=== PATIENT | male | born 1960 | race Caucasian/White ===

== ENCOUNTER 2016-11-09 10:14 | Outpatient (CLI) ==
[2016-03-07 07:17] VITALS: BMI 34.7
[2016-11-09 10:55] LABS: BASOPHILS % (AUTO) 0.4 % (0.0-3.0); EOSINOPHILS # (AUTO) 0.2 K/ul (0.0-0.7); EOSINOPHILS % (AUTO) 2.1 % (0.0-7.0); HEMATOCRIT 49.1 % (42.0-52.0); HEMOGLOBIN 16.4 g/dl (14.0-18.0); IMMATURE GRANULOCYTE % (AUTO) 0.2 % (0.0-5.0); LYMPHOCYTES # (AUTO) 1.9 K/uL (0.60-3.4); LYMPHOCYTES % (AUTO) 22.7 (10.0-50.0); MEAN CORPUSCULAR HGB CONC 33.4 (31.8-35.4); MEAN CORPUSCULAR VOLUME 86.9 fl (80.0-94.0); MONOCYTES # (AUTO) 0.5 K/uL (0.4-2.0); MONOCYTES % (AUTO) 6.4 (0-10); NEUTROPHILS # (AUTO) 5.6 K/ul (2.0-6.9); NEUTROPHILS % (AUTO) 68.2; PLATELET COUNT 178 10^3/uL (140-440); RED BLOOD COUNT 5.65 10^6/ul (4.70-6.10); WHITE BLOOD COUNT 8.22 K/ul (4.2-10.2)
--- NOTE | 2016-11-09 10:57 | US ---
EXAM: Ultrasound abdomen limited. HISTORY: Chronic hepatitis C. COMPARISON: None available. TECHNIQUE: Abdominal, real time with image documentation: limited (eg, single organ, quadrant, fol low-up) FINDINGS: The liver demonstrates a subtle nodular surface contour although there is homogeneous ech otexture without intrahepatic biliary dilatation. Portal venous flow is normal in direction. The g allbladder is without shadowing stones, wall thickening or pericholecystic fluid. Common duct measu res approximately 0.4 cm. Visualized portions of the pancreas are unremarkable. IMPRESSION: Subtle hepatic nodular surface contour could represent cirrhosis. No discrete hepatic lesion identi fied.
[2016-11-09 11:13] LABS: ALBUMIN 4.1 g/dL (3.4-5.0); ALBUMIN/GLOBULIN RATIO 1.08; ANION GAP 12.5; BILIRUBIN,TOTAL 0.49 mg/dL (0.00-1.20); BUN/CREATININE RATIO 15.47; CALCIUM 9.6 mg/dL (8.2-10.2); CREATININE 0.84 mg/dL (0.60-1.10); POTASSIUM 4.5 mmol/L (3.5-5.1); TOTAL PROTEIN 7.9 g/dL (6.4-8.2)
[2016-11-10 07:44] LABS: HEPATITIS A ANTIBODY TOTAL Negative (Negative)
[2016-11-10 08:06] LABS: HEPATITIS B SURFACE ANTIBODY Non Reactive (.)
[2016-11-13 13:11] LABS: HEPATITIS C GENOTYPE 1a (.)
== END 2016-11-09 10:15 | disposition home or self-care (01) ==
LOC: RAD 10:14
PROVIDERS: ATTEND Nurse Practitioner Family
DX: B18.2 Chronic viral hepatitis C (principal)
CPT/HCPCS: 36415; 80053; 85025; 86705; 86706; 86708; 87340; 87522

== ENCOUNTER 2016-12-05 08:58 | Day surgery (SDC) ==
[2016-03-07 07:17] VITALS: BMI 34.7
[2016-12-05] MEDS ORDERED: LIDOCAINE 1% 20 ML MDV ID ONE (09:43)
[2016-12-05] MEDS ORDERED: LIDOCAINE 1% 20 ML MDV ONE (09:43)
[2016-12-05] MEDS ORDERED: ALBUTEROL 0.083% NEB NEB STA (10:01)
[2016-12-05] MEDS ORDERED: DIPRIVAN 20 ML VIAL IVP ONE (10:35)
[2016-12-05] MEDS ORDERED: VERSED ONE (10:35)
[2016-12-05 12:21] VITALS: BP 142/75; TEMP 98
--- NOTE | 2016-12-06 09:46 | OP ---
INDICATIONS FOR PROCEDURE: 56-year-old gentleman presents for screening colonoscopy exam. MEDICATIONS: SEE ANESTHESIA NOTES. PROCEDURE: COLONOSCOPY, SNARE POLYPECTOMY. REPORT: The risks, benefits, alternatives and limitations were discussed in detail with the patient. Informed consent was obtained. After adequate sedation was achieved, a digital rectal exam revealed good tone, no masses. The colonoscope was introduced into the rectum and advanced under direct visual guidance to the cecum. The cecum was identified by the appendiceal orifice and IC valve. In the cecum there was a 7 or 8 mm sessile polyp, I removed this by snare technique. I then slowly withdrew the scope in a circumferential manner examining the mucosa quite carefully. I looked on the proximal and distal side of folds and flexures as best as possible. I was able to retroflex the scope in the right colon and left colon to increase visualization. In the proximal mid sigmoid area there was a 5 mm sessile polyp that I removed by snare technique. There were several small mouth diverticula scattered throughout the sigmoid. In the proximal rectum, behind the first fold of the rectum, what I believe was the 6 o'clock position based on the scope visualization was a polyp that was about 8 mm in size. It was a raised round polyp that appeared to be a little bit firm and may have been a submucosal lesion. It was semi pedunculated. I was able to place a snare around this and remove it at the base. There was no residual tissue noted at the polypectomy site. The polyp was retrieved and collected. No other abnormalities were noted including on retroflex view of the anal canal. The prep was good. The withdrawal time was 11 minutes and 55 seconds. The patient tolerated the procedure well with stable vital signs and pulse oximetry throughout. IMPRESSION: 1. THREE (3) POLYPOID LESIONS REMOVED ABOVE. 2. DIVERTICULOSIS. RECOMMENDATIONS: 1. High fiber diet. 2. Office visit as needed and as previously scheduled for followup of his hepatitis C (of which he did tell me that he was notified last night he got approved for the medicine). 3. If pathology is all unremarkable then I suggest a repeat colonoscopy examination again in 3 years. CC: [facility]
== END 2016-12-05 11:50 | disposition home or self-care (01) ==
LOC: SURG 08:58
PROVIDERS: ATTEND Internal Medicine Gastroenterology
DX: Z12.11 Encounter for screening for malignant neoplasm of colon (principal); D12.0 Benign neoplasm of cecum; D12.5 Benign neoplasm of sigmoid colon; D12.8 Benign neoplasm of rectum; K57.30 Diverticulosis of large intestine without perforation or abscess without bleeding; E11.9 Type 2 diabetes mellitus without complications
CPT/HCPCS: 82962; 94640

== ENCOUNTER 2016-12-14 06:38 | Outpatient (CLI) ==
[2016-03-07 07:17] VITALS: BMI 34.7
--- NOTE | 2016-12-14 11:47 | STRESSECHO ---
Date of Test: 12/14/16 Reason for Exam: CHEST PAIN Ordering Physician: [facility]--JANETH Current Medications: ZANAFLEX, NORCO, VASOTEC, NEURONTIN, SYMBICORT, OMEPRAZOLE Physical Findings: S1, S2, NO S3 Resting EKG: SINUS RHYTHM/NO ACUTE CHANGES Target Heart Rate: 137/162 STAGE MPH/GRADE HEART RATE BPM BLOOD PRESSURE mmhg RHYTHM S-T SEGMENT +/- UP DOWN SYMPTOMS,COMMENTS At Rest 68 128/70 SR X NONE 1 1.7/10% 100 140/82 SR X NONE 2 2.5/12% 120 140/80 SR X NONE 3 3.4/14% 4 4.2/16% 5 5.0/18% Immediately after 137 SR X SHORT OF BREATH Durations of Exercise: 6:36 Maximum Heart Rate Reached: 137 Reason for Termination: SHORT OF BREATH 3 MIN POST EXERCISE: HR 90 BPM, BP 148/72 MMHG, SINUS RHYTHM, S-T SEGMENT +/- , SHORT OF BREATH INTERPRETATION: 93% OXYGEN SATURATION WITH EXERCISE ON ROOM AIR METS 8.3 1. NO EVIDENCE OF ISCHEMIA BY ST-T WAVE 2. NO CHEST PAIN OR CHEST DISCOMFORT 3. BLOOD PRESSURE RESPONSE: NORMAL 4. NO ARRHYTHMIAS NORMAL LEFT VENTRICULAR CONTRACTILITY--RESTING AND POST EXERCISE MTDD
--- NOTE | 2016-12-14 12:01 | ECHOSTRESS ---
Date of Exam: 12/14/16 Ordering Physician: [facility]--JANETH Reason for Echo: CHEST PAIN, STRESS TEST--NO ISCHEMIA M-Mode Normal Adult Results LV Dimensions Normal Adult Results AoV Opening excursions >1.6 LVEDD-base- 3.5-5.8 Ao root dimensions 2.0-3.7 LVESD-base- 3.1-4.6 L. Atrium dimensions 1.9-3.8 Post. Wall thickness 0.8-1.1 IV septum (thickness) 0.7-1.2 Post. Wall excursion 0.72-1.3 Septal motion Systolic motion R. Ventricular cavity 1.5-2.0 LVEF 60% Paradoxical septal wall motion 2-D: NORMAL LEFT VENTRICULAR CONTRACTILITY--RESTING AND POST EXERCISE M-MODE: MV: AV: TV: PV: CHAMBER SIZE: WALL MOTION: NORMAL LEFT VENTRICULAR CONTRACTILITY--RESTING AND POST EXERCISE PERICARDIUM: INTERPRETATION: 1. NORMAL LEFT VENTRICULAR CONTRACTILITY--RESTING AND POST EXERCISE MTDD
== END 2016-12-14 06:39 | disposition home or self-care (01) ==
LOC: CAR 06:38
PROVIDERS: ATTEND Physician Assistant Medical
DX: R07.9 Chest pain, unspecified (principal)

== ENCOUNTER 2017-05-29 08:20 | Outpatient (CLI) ==
[2016-03-07 07:17] VITALS: BMI 34.7
== END 2017-05-29 08:21 | disposition home or self-care (01) ==
LOC: RAD 08:20
PROVIDERS: ATTEND Internal Medicine Gastroenterology
DX: B18.2 Chronic viral hepatitis C (principal)
CPT/HCPCS: 36415; 87522

== ENCOUNTER 2017-06-01 08:36 | Outpatient (CLI) | payer OTHER ==
[2016-03-07 07:17] VITALS: BMI 34.7
--- NOTE | 2017-06-01 09:20 | US ---
EXAM: Limited abdominal ultrasound. History: Cirrhosis, follow-up Comparison: Abdominal ultrasound 11/09/2016 Technique: Multiple sonographic images through the abdomen were obtained. Color duplex Doppler was used to interrogate vascular flow. Findings: The liver is not enlarged according to the sonographic measurement given. No focal liver lesions identified sonographically. The liver echotexture is slightly coarsened and not significan tly changed. The visualized pancreas demonstrates no gross abnormality. No abdominal ascites. The re is antegrade flow within the main portal vein. Limited visualization of the right kidney demonst rates no evidence for hydronephrosis. No shadowing gallstones. Gallbladder wall is not thickened. Common bile duct measures 0.3 cm in caliber. Impression: Mild coarsening of the liver echotexture, similar to the prior study. No focal liver l esions identified.
== END 2017-06-01 08:37 | disposition home or self-care (01) ==
LOC: RAD 08:36
PROVIDERS: ATTEND Internal Medicine Gastroenterology
DX: B18.2 Chronic viral hepatitis C (principal)

== ENCOUNTER 2021-07-10 12:05 | Inpatient (IN) ==
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
[2021-07-10] MEDS ORDERED: VENTOLIN HFA (PER PUFF-WITH SPACER) IH STA (14:23)
[2021-07-10 14:35] LABS: BASOPHILS # (AUTO) 0.1 K/uL (0-0.2); BASOPHILS % (AUTO) 0.7 % (0.0-3.0); EOSINOPHILS # (AUTO) 0.1 K/ul (0.0-0.7); EOSINOPHILS % (AUTO) 1.7 % (0.0-7.0); HEMATOCRIT 43.8 % (42.0-52.0); HEMOGLOBIN 13.8 g/dl (14.0-18.0); IMMATURE GRANULOCYTE % (AUTO) 0.3 % (0.0-5.0); LYMPHOCYTES # (AUTO) 1.6 K/uL (0.60-3.4); LYMPHOCYTES % (AUTO) 21.4 (10.0-50.0); MEAN CORPUSCULAR HEMOGLOBIN 28.5 pg (27.0-31.0); MEAN CORPUSCULAR HGB CONC 31.5 (31.8-35.4); MEAN CORPUSCULAR VOLUME 90.5 fl (80.0-94.0); MONOCYTES # (AUTO) 0.7 K/uL (0.4-2.0); MONOCYTES % (AUTO) 8.7 (0-10); NEUTROPHILS % (AUTO) 67.2 % (42.2-75.2); PLATELET COUNT 183 10^3/uL (140-440); RDW COEFFICIENT OF VARIATION 13.2 % (11.6-14.8); RED BLOOD COUNT 4.84 10^6/ul (4.70-6.10); WHITE BLOOD COUNT 7.49 K/ul (4.2-10.2)
[2021-07-10 14:36] LABS: BORDETELLA PARAPERTUSSIS (PCR) NOT DETECTED (NOT DETECT); BORDETELLA PERTUSSIS (PCR) NOT DETECTED (NOT DETECT); CHLAMYDIA PNEUMONIAE (PCR) NOT DETECTED (NOT DETECT); CORONAVIRUS 229E (PCR) NOT DETECTED (NOT DETECT); CORONAVIRUS HKU1 (PCR) NOT DETECTED (NOT DETECT); CORONAVIRUS NL63 (PCR) NOT DETECTED (NOT DETECT); CORONAVIRUS OC43 (PCR) NOT DETECTED (NOT DETECT); HUMAN METAPNEUMOVIRUS (PCR) NOT DETECTED (NOT DETECT); HUMAN RHINOVIRUS/ENTEROV (PCR) NOT DETECTED (NOT DETECT); INFLUENZA B (PCR) NOT DETECTED (NOT DETECT); MYCOPLASMA PNEUMONIAE (PCR) NOT DETECTED (NOT DETECT); PARAINFLUENZA VIRUS 1 (PCR) NOT DETECTED (NOT DETECT); PARAINFLUENZA VIRUS 2 (PCR) NOT DETECTED (NOT DETECT); PARAINFLUENZA VIRUS 3 (PCR) NOT DETECTED (NOT DETECT); PARAINFLUENZA VIRUS 4 (PCR) NOT DETECTED (NOT DETECT); RESPIRATORY SYNCYTIAL V (PCR) NOT DETECTED (NOT DETECT); SARS_COV_2 (PCR) NOT DETECTED (NOT DETECT)
[2021-07-10 14:48] LABS: ALBUMIN 4.02 g/dL (3.5-5.0); ALKALINE PHOSPHATASE 34.7 U/L (56-119); ASPARTATE AMINO TRANSFERASE 24.1 U/L (17-59); BILIRUBIN,TOTAL 0.48 mg/dL (0.2-1.3); BLOOD UREA NITROGEN 9.5 mg/dL (9-20); CALCIUM 9.02 mg/dL (8.4-10.2); CARBON DIOXIDE 29.4 mmol/L (22-30.0); CHLORIDE 103.5 mmol/L (98-107); CREATININE 0.96 mg/dL (0.60-1.10); GLUCOSE 123.2 mg/dL (74-106); POTASSIUM 4.63 mmol/L (3.5-5.1); SODIUM 139.6 mmol/L (134.5-145); TOTAL PROTEIN 6.79 g/dL (6.3-8.2)
--- NOTE | 2021-07-10 14:49 | DI ---
EXAM: Chest one view, frontal view only. HISTORY: Dyspnea. COMPARISON: None. FINDINGS: Cardiac silhouette enlarged. There is no vascular congestion. There is blunting of the r ight costophrenic angle with band-like opacity along the right diaphragm. Lungs otherwise clear. No pneumothorax. Calcifications in the aorta and expected location of the carotid arteries. No acute osseous abnormality. IMPRESSION: Right pleural effusion with right basilar atelectasis or pneumonia.
[2021-07-10 15:00] LABS: TROPONIN I 0.024 ng/ml (0.0000-0.120)
[2021-07-10 15:25] LABS: ADENOVIRUS (PCR) NOT DETECTED (NOT DETECT)
[2021-07-10] MEDS: LOVENOX SUBCUT SCH (17:52)
[2021-07-10 18:24] LABS: ABG O2 HGB 93.8 % (95-100); ABG PH 7.44 (7.35-7.45); BEecf 4.3 (-2.0-3.0); COHb 2.9 (0.5-1.5); HCO3 28.5 (21-28); MetHb 0.7 (0-1.5); TCO2 29.8 (19-24); sO2 95.2 % (94-98)
[2021-07-10] MEDS: LASIX IVP SCH (18:40)
[2021-07-11] MEDS: LASIX IVP SCH (05:41)
[2021-07-11] MEDS ORDERED: LASIX IVP SCH (06:30)
[2021-07-11 07:23] LABS: BASOPHILS # (AUTO) 0.1 K/uL (0-0.2); BASOPHILS % (AUTO) 0.7 % (0.0-3.0); EOSINOPHILS # (AUTO) 0.1 K/ul (0.0-0.7); EOSINOPHILS % (AUTO) 1.8 % (0.0-7.0); HEMATOCRIT 42.5 % (42.0-52.0); HEMOGLOBIN 13.8 g/dl (14.0-18.0); IMMATURE GRANULOCYTE % (AUTO) 0.1 % (0.0-5.0); LYMPHOCYTES # (AUTO) 2.2 K/uL (0.60-3.4); LYMPHOCYTES % (AUTO) 28.6 (10.0-50.0); MEAN CORPUSCULAR HEMOGLOBIN 28.9 pg (27.0-31.0); MEAN CORPUSCULAR HGB CONC 32.5 (31.8-35.4); MEAN CORPUSCULAR VOLUME 88.9 fl (80.0-94.0); MONOCYTES # (AUTO) 0.7 K/uL (0.4-2.0); MONOCYTES % (AUTO) 9.3 (0-10); NEUTROPHILS # (AUTO) 4.5 K/ul (2.0-6.9); NEUTROPHILS % (AUTO) 59.5 % (42.2-75.2); PLATELET COUNT 203 10^3/uL (140-440); RDW COEFFICIENT OF VARIATION 13.1 % (11.6-14.8); RED BLOOD COUNT 4.78 10^6/ul (4.70-6.10)
[2021-07-11 07:35] LABS: ALBUMIN 4.09 g/dL (3.5-5.0); ALKALINE PHOSPHATASE 33.7 U/L (56-119); ASPARTATE AMINO TRANSFERASE 24.5 U/L (17-59); BILIRUBIN,TOTAL 0.57 mg/dL (0.2-1.3); CALCIUM 9.26 mg/dL (8.4-10.2); CARBON DIOXIDE 32.3 mmol/L (22-30.0); CHLORIDE 101.6 mmol/L (98-107); CHOLESTEROL 123.4 mg/dL (0-200); CREATININE 1.02 mg/dL (0.60-1.10); GLUCOSE 126.8 mg/dL (74-106); HDL CHOLESTEROL 32.3 mg/dL (35-60); POTASSIUM 4.4 mmol/L (3.5-5.1); SODIUM 140.6 mmol/L (134.5-145); TOTAL PROTEIN 6.93 g/dL (6.3-8.2); TRIGLYCERIDES 86.3 mg/dL (0-150)
[2021-07-11 07:36] VITALS: BMI 31.8
[2021-07-11 07:46] LABS: TROPONIN I 0.032 ng/ml (0.0000-0.120)
[2021-07-11 08:06] LABS: THYROID STIMULATING HORMONE 2.18 uIU/L (0.465-4.68)
[2021-07-11] MEDS ORDERED: LASIX IVP STA (08:43)
--- NOTE | 2021-07-11 08:57 | PCM.PROG ---
Date Seen by Provider: 07/11/21 Time Seen by Provider: 08:05 Subjective: Pt admitted for CHF and SOB. Still complains of SOB particularly when laying down or when he falls asleep. Awating Consult with Dr. Bautista Objective: Vitals: T=97.6 F, P=96, R=18, VJ=774/87, SPO2=96 HEENT: [] Neck: [] Lungs: [No obvious resp distress with minimal bibasilar rales] CVS: [] Abdomen: [] Extremities: [] Neurological: [] Skin: [] Lab/Tests/Diagnostic Imaging: [] Plan: Labs Show trop of 0.32 up slightly from previous but still negative. BNP is actually higher than before, up to 9180 from 7420. CBC and Chems are otherwise negative. Will await Dr. Bautista consult and reeval after that.
--- NOTE | 2021-07-11 09:17 | PCM.PROG ---
Dr. Bautista has seen and evaluated the patient. He wants the patient to move from Obs to IP which Case Management is working on. Have increased Lasix, added Rocephin, added a CT of the chest and will complete the Echo later. Pt will be here at least one more day.
--- NOTE | 2021-07-11 09:23 | PCM.PROG ---
Attending Provider: ATTENDING PROVIDER: Dr. ZAIDA PABLO This patient is seen with Trena Trevino, Nurse Practitioner. DATE OF SERVICE: 07/11/21 SUBJECTIVE: This 61 year old /WHITE M was hospitalized 07/10/21. The patient is resting comfortably. The patient arrived to the ER complaining of shortness of breath, orthopnea and severe leg edema. He states this has been happening the past severe weeks. He hasn't been able to sleep. He is noncompliant with medical followup. He is not taking any prescription medication. Not consistently seen by health care provider. He is a one pack per day smoker. He has a positive family history of CAD. Denies any chest pain. REVIEW OF SYSTEMS: CONSTITUTIONAL: No night sweats. No fatigue, malaise, lethargy. No fever or chills. HEENT: Eyes: No visual changes. No eye pain. No eye discharge. ENT: No runny nose. No epistaxis. No sinus pain. No odynophagia. No congestion. RESPIRATORY: Cough, no congestion. No hemoptysis. Shortness of breath. CARDIOVASCULAR: No angina symptoms. No CHF symptoms. No atypical chest pain for CAD. No palpitations. No orthopnea.. GASTROINTESTINAL: No abdominal pain. No nausea or vomiting. No diarrhea or constipation. No hematemesis. No hematochezia. GENITOURINARY: No urgency. No frequency. No dysuria. No hematuria. No obstructive symptoms. No discharge. No pain. No significant abnormal bleeding. MUSCULOSKELETAL: No musculoskeletal pain; no joint swelling. NEUROLOGICAL: Awake, alert, oriented to time, place and person. No headache. No neck pain. No syncope. No seizures. No dizziness. PSYCHIATRIC: Not anxious. No depression. No suicidal thoughts. No homicidal thoughts. SKIN: No rash. No lesions. No wounds. Leg edema. ENDOCRINE: No unexplained weight loss. No weight gain. HEMATOLOGIC/LYMPHATIC: No anemia. No purpura. No petechiae. No prolonged or excessive bleeding. No palpable lymph nodes. PHYSICAL EXAMINATION: GENERAL: The patient is awake, alert and oriented, lying in bed in no distress. VITAL SIGNS: Temperature 97.6 F, Pulse 96, Respiratory Rate 18, BP 124/87, Pulse Ox 96% HEENT: Head normocephalic, atraumatic. Eyes: Extraocular muscles are intact. Pupils are equal, round and reactive to light and accommodation. Ears: No lesions. Nose appeared normal. Throat: No exudate or erythema. NECK: Supple. No JVD, no carotid bruit. No lymphadenopathy or thyromegaly. LUNGS: Diminished breath sounds. Crackles at bases. Clear to auscultation. Percussion note normal. Chest symmetrical. HEART: S1, S2, no S3. No murmurs. No cyanosis or clubbing. No ascites. Pulses: Dorsalis pedis and posterior tibial pulses +1 to +2 both sides. ABDOMEN: Soft. Non-tender. Bowel sounds active. No CVA tenderness. No mass felt. EXTREMITIES: 2+ bilateral leg edema. Full range of motion of all extremities, equal. NEUROLOGIC: No focal deficit. Cranial nerves II through XII are grossly intact. No headache. No double vision. SKIN: Not dry. Intact. Turgor-normal. LYMPHATIC: No palpable lymph nodes/no lymphedema. MUSCULOSKELETAL: Normal joints with no swelling. Muscle tone is normal. LAB REVIEW: 07/11/21 07:13 07/11/21 07:13 07/11/21 07:13: Sodium 140.6, Potassium 4.40, Chloride 101.6, Carbon Dioxide 32.3 H, Anion Gap 11.10, BUN 12.0, Creatinine 1.02, Estimated GFR (MDRD) 74.00, BUN/Creatinine Ratio 11.76, Glucose 126.8 H, Calcium 9.26, Total Bilirubin 0.57, AST 24.5, ALT 19.0, Alkaline Phosphatase 33.7 L, Total Protein 6.93, Albumin 4.09, Globulin 2.84, Albumin/Globulin Ratio 1.44, Triglycerides 86.3, Cholesterol 123.4, LDL Cholesterol, Calc 74, VLDL Cholesterol 17, HDL Cholesterol 32.3 L, Cholesterol/HDL Ratio 3.8 L 07/11/21 07:13: WBC 7.60, RBC 4.78, Hgb 13.8 L, Hct 42.5, MCV 88.9, MCH 28.9, MCHC 32.5, RDW Coeff of Shani 13.1, Plt Count 203, Immature Gran % (Auto) 0.1, Neut % (Auto) 59.5, Lymph % (Auto) 28.6, [place] % (Auto) 9.3, Eos % (Auto) 1.8, Baso % (Auto) 0.7, Neut # (Auto) 4.5, Lymph # (Auto) 2.2, [place] # (Auto) 0.7, Eos # (Auto) 0.1, Baso # (Auto) 0.1, Immature Gran # (Auto) 0.0 07/10/21 23:25: Troponin I 0.029 07/10/21 18:19: Puncture Site Lbrach, Base Excess 4.3 H, O2 Saturation 95.2, ABG pH 7.44, ABG pCO2 42.0, ABG pO2 74.0 L, ABG HCO3 28.5 H, ABG Total CO2 29.8 H, Hemoglobin 0.7, Oxyhemoglobin 93.8 L, Carboxyhemoglobin 2.9 H, Total Hemoglobin 13.0, FiO2 % 21.0 07/10/21 14:30: Sodium 139.6, Potassium 4.63, Chloride 103.5, Carbon Dioxide 29.4, Anion Gap 11.33, BUN 9.5, Creatinine 0.96, Estimated GFR (MDRD) 79.00, BUN/Creatinine Ratio 9.89, Glucose 123.2 H, Calcium 9.02, Total Bilirubin 0.48, AST 24.1, ALT 21.0, Alkaline Phosphatase 34.7 L, Troponin I 0.024, NT-Pro-B Natriuret Pep 7420.000 H, Total Protein 6.79, Albumin 4.02, Globulin 2.77, Albumin/Globulin Ratio 1.45 07/10/21 14:30: WBC 7.49, RBC 4.84, Hgb 13.8 L, Hct 43.8, MCV 90.5, MCH 28.5, MCHC 31.5 L, RDW Coeff of Shani 13.2, Plt Count 183, Immature Gran % (Auto) 0.3, Neut % (Auto) 67.2, Lymph % (Auto) 21.4, [place] % (Auto) 8.7, Eos % (Auto) 1.7, Baso % (Auto) 0.7, Neut # (Auto) 5.0, Lymph # (Auto) 1.6, [place] # (Auto) 0.7, Eos # (Auto) 0.1, Baso # (Auto) 0.1, Immature Gran # (Auto) 0.0 07/10/21 13:45: Adenovirus (PCR) Not detected, B. pertussis DNA (PCR) Not detected, B.parapertussis DNA PCR Not detected, C. pneumoniae DNA (PCR) Not detected, Coronavirus OC43 (PCR) Not detected, Coronavirus HKU1 (PCR) Not detected, Coronavirus 229E (PCR) Not detected, Coronavirus NL63 (PCR) Not detected, Human Metapneumovir PCR Not detected, Influenza Type A (PCR) Not detected, Influenza B (RT-PCR) Not detected, M. pneumoniae (PCR) Not detected, Parainfluenza 1 (PCR) Not detected, Parainfluenza 2 (PCR) Not detected, Parainfluenza 3 (PCR) Not detected, Parainfluenza 4 (PCR) Not detected, RSV (PCR) Not detected, Entero/Rhino (PCR) Not detected, SARS-CoV-2 (PCR) Not detected ASSESSMENT: Please see below. 1. Bilateral leg edema 2. Shortness of breath 3. Smoker 4. Obesity 5. Family history of coronary artery disease 6. elevated BNP/possible CHF PLAN: 1. Rocephin 1 gram IV daily 2. A1c 3. 2D echo 4. 40mg IV Lasix daily 5. Daily weights 6. Monitor input and output 7. CT chest with and without 8. Keep legs elevated. Plan and coordination of the patient's care discussed in the presence of Streetcar Repairer and nurse. SCRIBED BY: LIZ PHILLIP Assistant Store Manager Sales scribed while in presence of service performed by Dr. Bautista/Trena Trevino APRN on 07/11/21 ([id number])
[2021-07-11] MEDS: ROCEPHIN 1 GM/50 ML D5W 1 GM/50 ML BAG IV SCH (10:01)
[2021-07-11] MEDS: LOVENOX SUBCUT SCH (10:01)
--- NOTE | 2021-07-11 11:40 | CT ---
EXAM: CT Chest with and without contrast. HISTORY: Chest port failure. Right pleural effusion. COMPARISON: Radiograph 1 day prior. TECHNIQUE: Multiple axial images of the chest were obtained prior to and following intravenous admin istration of 75 mL Omnipaque 350, low osmolar. Images were reformatted in the sagittal and coronal p lanes. FINDINGS: Multiple mediastinal lymph nodes present which measure 1.5 cm in the pretracheal region on postcontrast axial image 21. Multiple other mediastinal and hilar lymph nodes are present which are prominent although not enlarged by size criteria. Heart mildly enlarged. Atherosclerotic calcifications in the aorta and coronary arteries. No perica rdial effusion. There is a moderate right pleural effusion with dependent consolidation in the right lower lobe. The re is no left pleural effusion. No interlobular septal thickening, consolidation ground-glass. No o vert vascular congestion. Limited images of the upper abdomen demonstrate small hiatal hernia. Trace perihepatic ascites. Degenerative changes in the spine. IMPRESSION: 1. Moderate right pleural effusion with dependent right lower lobe atelectasis. 2. Mediastinal lymphadenopathy with additional multiple mediastinal and hilar lymph nodes. Follow-u p in 3 months recommended. 3. Cardiomegaly and atherosclerosis. 4. Trace perihepatic ascites. 5. Small hiatal hernia. All CT scans are performed using dose optimization techniques as appropriate to the performed exam an d include at least one of the following: Automated exposure control, adjustment of the mA and/or kV according t o size, and the use of iterative reconstruction technique.
[2021-07-11] MEDS: COREG PO SCH ×2 (13:24→17:36)
[2021-07-11] MEDS: DECADRON IVP SCH (13:25)
[2021-07-11] MEDS: ZESTRIL PO SCH (13:25)
[2021-07-11] MEDS: SYMBICORT 160-4.5 MCG INHALER IH SCH ×2 (13:25→20:19)
[2021-07-11] MEDS: LIBRIUM PO SCH ×2 (14:54→20:18)
[2021-07-11] MEDS: THIAMINE IM SCH (14:54)
[2021-07-11] MEDS: GLUCOPHAGE PO SCH (17:36)
[2021-07-12 05:01] LABS: BASOPHILS % (AUTO) 0.2 % (0.0-3.0); HEMATOCRIT 41.3 % (42.0-52.0); HEMOGLOBIN 13.3 g/dl (14.0-18.0); IMMATURE GRANULOCYTE % (AUTO) 0.3 % (0.0-5.0); LYMPHOCYTES # (AUTO) 1.3 K/uL (0.60-3.4); LYMPHOCYTES % (AUTO) 13.2 (10.0-50.0); MEAN CORPUSCULAR HEMOGLOBIN 28.1 pg (27.0-31.0); MEAN CORPUSCULAR HGB CONC 32.2 (31.8-35.4); MEAN CORPUSCULAR VOLUME 87.3 fl (80.0-94.0); MONOCYTES # (AUTO) 0.6 K/uL (0.4-2.0); MONOCYTES % (AUTO) 6.8 (0-10); NEUTROPHILS # (AUTO) 7.5 K/ul (2.0-6.9); NEUTROPHILS % (AUTO) 79.5 % (42.2-75.2); PLATELET COUNT 209 10^3/uL (140-440); RDW COEFFICIENT OF VARIATION 12.7 % (11.6-14.8); RED BLOOD COUNT 4.73 10^6/ul (4.70-6.10); WHITE BLOOD COUNT 9.46 K/ul (4.2-10.2)
[2021-07-12 05:13] LABS: ALANINE AMINOTRANSFERASE 16.5 U/L (0-50); ALBUMIN 3.51 g/dL (3.5-5.0); ALKALINE PHOSPHATASE 29.4 U/L (56-119); ASPARTATE AMINO TRANSFERASE 19.8 U/L (17-59); BILIRUBIN,TOTAL 0.45 mg/dL (0.2-1.3); CALCIUM 8.75 mg/dL (8.4-10.2); CARBON DIOXIDE 31.1 mmol/L (22-30.0); CHLORIDE 100.1 mmol/L (98-107); CREATININE 0.92 mg/dL (0.60-1.10); GLUCOSE 150.2 mg/dL (74-106); POTASSIUM 4.51 mmol/L (3.5-5.1); SODIUM 137.8 mmol/L (134.5-145)
[2021-07-12] MEDS ORDERED: TYLENOL PO PRN (05:22)
[2021-07-12] MEDS: LASIX IVP SCH (05:56)
[2021-07-12] MEDS ORDERED: LASIX IVP STA (07:41)
[2021-07-12] MEDS: ROCEPHIN 1 GM/50 ML D5W 1 GM/50 ML BAG IV SCH (08:48)
[2021-07-12] MEDS: ZESTRIL PO SCH (08:48)
[2021-07-12] MEDS: COREG PO SCH ×2 (08:48→16:51)
[2021-07-12] MEDS: GLUCOPHAGE PO SCH ×2 (08:48→16:51)
[2021-07-12] MEDS: THIAMINE IM SCH (08:48)
[2021-07-12] MEDS: LIBRIUM PO SCH ×3 (08:48→20:50)
[2021-07-12] MEDS: SYMBICORT 160-4.5 MCG INHALER IH SCH ×2 (08:49→20:50)
[2021-07-12] MEDS: LOVENOX SUBCUT SCH (08:50)
[2021-07-12] MEDS: MIRALAX PO SCH (09:09)
[2021-07-12] MEDS: DECADRON IVP SCH (09:09)
--- NOTE | 2021-07-12 09:19 | PCM.PROG ---
Attending Provider: ATTENDING PROVIDER: Dr. ZAIDA PABLO This patient is seen with Trena Trevino, Nurse Practitioner. DATE OF SERVICE: 07/12/21 SUBJECTIVE: This 61 year old /WHITE M was hospitalized 07/11/21. The patient is resting comfortably. Leg edema has significantly improved today. Has had a significant amount of urine output. CT of the chest showed bilateral effusion and small amount of ascites. Echo yesterday showed ejection fraction 20% with dilated cardiomyopathy. He is tolerating medication changes. He did admit yesterday to significant alcohol history. We started him on Librium and Thiamine, no signs of withdraw. REVIEW OF SYSTEMS: CONSTITUTIONAL: No night sweats. No fatigue, malaise, lethargy. No fever or chills. HEENT: Eyes: No visual changes. No eye pain. No eye discharge. ENT: No runny nose. No epistaxis. No sinus pain. No odynophagia. No congestion. RESPIRATORY: No cough, no congestion. No hemoptysis. Shortness of breath. CARDIOVASCULAR: No angina symptoms. No CHF symptoms. No atypical chest pain for CAD. No palpitations. No orthopnea.. GASTROINTESTINAL: No abdominal pain. No nausea or vomiting. No diarrhea or constipation. No hematemesis. No hematochezia. GENITOURINARY: No urgency. No frequency. No dysuria. No hematuria. No obstructive symptoms. No discharge. No pain. No significant abnormal bleeding. MUSCULOSKELETAL: No musculoskeletal pain; no joint swelling. Leg edema. NEUROLOGICAL: Awake, alert, oriented to time, place and person. No headache. No neck pain. No syncope. No seizures. No dizziness. PSYCHIATRIC: Not anxious. No depression. No suicidal thoughts. No homicidal thoughts. SKIN: No rash. No lesions. No wounds. ENDOCRINE: No unexplained weight loss. No weight gain. HEMATOLOGIC/LYMPHATIC: No anemia. No purpura. No petechiae. No prolonged or excessive bleeding. No palpable lymph nodes. PHYSICAL EXAMINATION: GENERAL: The patient is awake, alert and oriented, lying in bed in no distress. VITAL SIGNS: Temperature 97.8 F, Pulse 88, Respiratory Rate 19, BP 98/64, Pulse Ox 95% HEENT: Head normocephalic, atraumatic. Eyes: Extraocular muscles are intact. Pupils are equal, round and reactive to light and accommodation. Ears: No lesions. Nose appeared normal. Throat: No exudate or erythema. NECK: Supple. No JVD, no carotid bruit. No lymphadenopathy or thyromegaly. LUNGS: Diminished breath sounds. Clear to auscultation. Percussion note normal. Chest symmetrical. HEART: S1, S2, no S3. No murmurs. No cyanosis or clubbing. No ascites. Pulses: Dorsalis pedis and posterior tibial pulses +1 to +2 both sides. ABDOMEN: Soft. Non-tender. Bowel sounds active. No CVA tenderness. No mass felt. EXTREMITIES: Trace bilateral leg edema. Full range of motion of all extremities, equal. NEUROLOGIC: No focal deficit. Cranial nerves II through XII are grossly intact. No headache. No double vision. SKIN: Not dry. Intact. Turgor-normal. LYMPHATIC: No palpable lymph nodes/no lymphedema. MUSCULOSKELETAL: Normal joints with no swelling. Muscle tone is normal. LAB REVIEW: 07/12/21 04:20 07/12/21 04:20 07/12/21 04:20: Sodium 137.8, Potassium 4.51, Chloride 100.1, Carbon Dioxide 31.1 H, Anion Gap 11.11, BUN 14.0, Creatinine 0.92, Estimated GFR (MDRD) 83.00, BUN/Creatinine Ratio 15.21, Glucose 150.2 H, Calcium 8.75, Total Bilirubin 0.45, AST 19.8, ALT 16.5, Alkaline Phosphatase 29.4 L, Total Protein 6.00 L, Albumin 3.51, Globulin 2.49, Albumin/Globulin Ratio 1.40 07/12/21 04:20: WBC 9.46, RBC 4.73, Hgb 13.3 L, Hct 41.3 L, MCV 87.3, MCH 28.1, MCHC 32.2, RDW Coeff of Shani 12.7, Plt Count 209, Immature Gran % (Auto) 0.3, Neut % (Auto) 79.5 H, Lymph % (Auto) 13.2, [place] % (Auto) 6.8, Eos % (Auto) 0.0, Baso % (Auto) 0.2, Neut # (Auto) 7.5 H, Lymph # (Auto) 1.3, [place] # (Auto) 0.6, Eos # (Auto) 0.0, Baso # (Auto) 0.0, Immature Gran # (Auto) 0.0 07/11/21 07:13: Free T4 1.19 07/11/21 07:13: Hemoglobin A1c 6.82 H 07/11/21 07:13: NT-Pro-B Natriuret Pep 9180.000 H 07/11/21 07:13: Thyroxine (T4) 7.0 ASSESSMENT: Please see below. 1. Acute CHF 2. Dilated cardiomyopathy with ejection fraction 20-25% 3. Diabetes mellitus type II, A1c 6.82 4. History of alcohol use 5. Smoker 6. Obesity 7. Metabolic syndrome PLAN: 1. PFT today 2. continue Coreg and Lisinopril for optimal cardiac output 3. CHF discussed in detail with the patient regarding the importance of medication 4. Blood sugar has improved after starting Metformin. Plan and coordination of the patient's care discussed in the presence of [employer] and nurse. SCRIBED BY: Chelsea PHAMist scribed while in presence of service performed by Dr. Bautista/Trena Trevino APRN on 07/12/21 ([id number])
--- NOTE | 2021-07-12 11:57 | CONS ---
DATE OF CONSULTATION: 07/11/21 REASON FOR CONSULTATION: The patient has symptoms of CHF with cardiopulmonary evaluation. HISTORY OF PRESENT ILLNESS: 61-year-old white male came to the emergency room because he has been having symptoms consistent with CHF like orthopnea for the past four weeks. To lay down flat, he wakes up coughing. 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 Ever since then he has been coughing and has developed shortness of breath especially at night he can't breathe. REVIEW OF SYSTEMS: CONSTITUTIONAL: Some fatigue and weakness lately in the past four weeks. No night sweats. No malaise, lethargy. No fever or chills. HEENT: Eyes: No visual changes. No eye pain. No eye discharge. ENT: No sinus drainage. No epistaxis. No sinus pain. No sore throat. No odynophagia. No ear pain. No congestion. RESPIRATORY: No hemoptysis. The patient has mild cough which is persistent according to him but lately in four weeks it has increased. CARDIOVASCULAR: Consistent with orthopnea, shortness of breath on exertion and chronic cough with chest pain. No exertional chest discomfort. No palpitations. GASTROINTESTINAL: No abdominal pain. No nausea or vomiting. No diarrhea or constipation. No hematemesis. No hematochezia. GENITOURINARY: No urgency. No frequency. No dysuria. No hematuria. No obstructive symptoms. No discharge. No pain. No significant abnormal bleeding. MUSCULOSKELETAL: No musculoskeletal pain. No joint swelling. NEUROLOGICAL: No headache. No neck pain. No syncope. No seizures. No dizziness. PSYCHIATRIC: Not anxious. No depression. No suicidal thoughts. No homicidal thoughts. SKIN: No rash. No lesions. No wounds. ENDOCRINE: No unexplained weight loss. No weight gain. HEMATOLOGIC/LYMPHATIC: No anemia. No purpura. No petechiae. No prolonged or excessive bleeding. No palpable lymph nodes. MEDICATIONS: None ALLERGIES: NONSTEROIDAL ANTIINFLAMMATORY SOCIAL/PERSONAL/FAMILY HISTORY: The patient is . His 's name is Kassie Muro. The patient is a heavy smoker. Also history of heavy alcohol abuse, both of them he quit nearly four weeks ago but still smoking some and drinking some. He lives by himself. He is unemployed. He doesn't go to any doctor at the present time for nearly 6 to 8 months. Last time he was seen in a [facility] clinic. PHYSICAL EXAMINATION: GENERAL: The patient is oriented to time, place and person not in any distress. VITAL SIGNS: Temperature 97.6, pulse 96, respiratory rate 18, blood pressure 124/87, pulse ox 96%. HEENT: Head normocephalic, atraumatic. Eyes: Extraocular muscles are intact. Pupils are equal, round and reactive to light and accommodation. Ears: No lesions. Nose appeared normal. Throat: No exudate or erythema. NECK: Supple. JVP 2 cm. No carotid bruit. No lymphadenopathy. LUNGS: Decreased breath sounds bilaterally with few crepitations, dry. Percussion note normal. Chest symmetrical. HEART: S1, S2, questionable S3. No murmur. No cyanosis or clubbing. No ascites. Pulses: Dorsalis pedis and posterior tibial pulses +1 bilaterally. ABDOMEN: Soft. Nontender. Bowel sounds active. No CVA tenderness. No mass felt. EXTREMITIES: Trace to +1 pitting edema noted. Full range of motion of all extremities, equal. NEUROLOGIC: No focal deficit. Cranial nerves II through XII are grossly intact. No headache, no double vision or headache. SKIN: Not dry. Intact. Turgor - normal. LYMPHATIC: No palpable lymph nodes/no lymphedema. MUSCULOSKELETAL: Normal joints with no swelling. Muscle tone is normal. LABS: Hemoglobin 13.8, hematocrit 43, WBC 7,400, normal differential. Creatinine 0.9, BUN 9, potassium 4.6, glucose 123, A1C 7.6, BNP 7,420. Covid negative. Troponin negative. EKG sinus rhythm, nonspecific ST-T wave changes, poor R wave progression. ST-T wave changes with T wave inversion could be nonspecific and/or ischemia. Lipid profile excellent consistent with liver disease and alcoholism. Echocardiogram done which showed borderline dilated left ventricular cavity with ejection fraction of 25%. LV cavity is enlarged. Valvular structures are normal. RV cavity is enlarged. ASSESSMENT: 1. Dilated cardiomyopathy likely alcoholic with poor ejection fraction with history consistent with congestive heart failure. 2. Severe chronic lung disease with history of heavy smoking. 3. Noncompliant of all aspects of medical care. 4. Chronic bronchitis. RECOMMENDATIONS: 1. Echo already done. See the report mentioned. The patient has dilated cardiomyopathy, poor ejection fraction. 2. The patient needs to have evaluation by machine repair person with further stress testing and possibility of life vest, poor ejection fraction and cardiomyopathy. 3. Counseling for smoking done. Counseling for alcoholism done. The patient doesn't want any help for alcohol or smoking. 4. Add Coreg, small dose 3.125 p.o. twice a day along with Lisinopril 2.5 mg p.o. daily. 5. Continue Lasix 40 mg at the present time and on discharge maybe 20 mg with potassium supplement. 6. The patient is a candidate for Entresto but the patient cannot afford. Will be on Coreg with Lisinopril combination with diuretic for now. 7. The patient's systolic blood pressure is 120 so we may not have much room to unload him. In any case will start with Coreg, dose of Parag inhibitor. 8. Rocephin 1 gm IV daily because the chest x-ray shows the possibility of pneumonitis. 9. I will give 1 cc Decadron today and tomorrow morning with possibility of pneumonitis with inhalation of dust. 10. Symbicort two puffs now and twice a day. 11. The patient is diabetic with A1C of 7.6, explained about the finding. Diet discussed. He will be started on Metformin 500 mg p.o. twice a day. The patient's condition is stable. Prognosis is Guarded. The patient is noncompliant. Strongly advised to go back to the [facility], Dr. De La Cruz. Thanks for the referral, will follow. ADDENDUM: The patient wanted to go home but I explained to him that we need a couple of days for him to get settled down with the new medications. He has agreed. He has already called his and told her that he will be staying in the hospital. The patient was seen and examined with the nurse practitioner. Also later on the patient had echocardiogram done and the patient was reexamined. TID
--- NOTE | 2021-07-12 12:32 | ECHO2D ---
Date of Exam: 07/11/2021 Ordering Physician: HOSPITALIST--[facility] Room #: 103 Reason for Echo: CHF, COPD M-Mode Normal Adult Results LV Dimensions Normal Adult Results AoV Opening excursions >1.6 >1.6 LVEDD-base- 3.5-5.8 5.7 Ao root dimensions 2.0-3.7 3.2 LVESD-base- 3.1-4.6 L. Atrium dimensions 1.9-3.8 5.3 Post. Wall thickness 0.8-1.1 1.3 IV septum (thickness) 0.7-1.2 1.4 Post. Wall excursion 0.72-1.3 0.5 Septal motion 0.4 Systolic motion R. Ventricular cavity 1.5-2.0 3.5 LVEF 60% 25% Paradoxical septal wall motion NORMAL 2-D : ENLARGED LEFT ATRIAL AND RIGHT VENTRICLE CAVITIES--BORDERLINE ENLARGED LEFT VENTRICLE CAVITY--HYPOKINETIC LEFT VENTRICLE--NORMAL VALVES--NO EFFUSION, NO THROMBUS COLOR FLOW: MILD TO MODERATE MITRAL REGURGITATION M-MODE: MV: NORMAL AV: NORMAL TV: NORMAL PV: CHAMBER SIZE: ENLARGED LEFT ATRIAL AND RIGHT VENTRICLE CAVITIES/ BORDERLINE LEFT VENTRICLE CAVITY WALL MOTION: HYPOKINETIC LEFT VENTRICLE PERICARDIUM: NORMAL INTERPRETATION: 1. LEFT VENTRICLE HYPERTROPHY WITH ENLARGED LEFT ATRIAL CAVITY 2. ENLARGED RIGHT VENTRICLE CAVITY 3. BORDERLINE LEFT VENTRICLE CAVITY ENLARGEMENT 4. HYPOKINETIC LEFT VENTRICLE WITH EJECTION FRACTION 25% 5. MILD TO MODERATE MITRAL REGURGITATION MTDD
--- NOTE | 2021-07-12 17:34 | PCM.PROG ---
Hospital Day 2 S) Patient doing slightly better. Has underwent cardiac evaluation including Echocardiogram which revealed :LEFT VENTRICLE HYPERTROPHY WITH ENLARGED LEFT ATRIAL CAVITY,. ENLARGED RIGHT VENTRICLE CAVITY,. BORDERLINE LEFT VENTRICLE CAVITY ENLARGEMENT,. HYPOKINETIC LEFT VENTRICLE WITH EJECTION FRACTION 25% and MILD TO MODERATE MITRAL REGURGITATION. Stated feeling better and expresses appreciation for his treatment and care. O) VVS PE: AAO X 3 in NAD HEENT: Clear Neck : Neg JVD CV- HRRR RESP L-CTA-AF Extrem: Less pedal edema A) Congestive Heart Failure Cardiomyopathy HTN P) Discused diagnostic findings-state understanding Amrit Torres DO
[2021-07-13 04:52] LABS: BASOPHILS % (AUTO) 0.3 % (0.0-3.0); EOSINOPHILS % (AUTO) 0.2 % (0.0-7.0); HEMATOCRIT 41.4 % (42.0-52.0); HEMOGLOBIN 13.4 g/dl (14.0-18.0); IMMATURE GRANULOCYTE % (AUTO) 0.3 % (0.0-5.0); LYMPHOCYTES # (AUTO) 2.6 K/uL (0.60-3.4); LYMPHOCYTES % (AUTO) 21.6 (10.0-50.0); MEAN CORPUSCULAR HEMOGLOBIN 28.2 pg (27.0-31.0); MEAN CORPUSCULAR HGB CONC 32.4 (31.8-35.4); MEAN CORPUSCULAR VOLUME 87.2 fl (80.0-94.0); MONOCYTES # (AUTO) 0.9 K/uL (0.4-2.0); MONOCYTES % (AUTO) 7.3 (0-10); NEUTROPHILS # (AUTO) 8.4 K/ul (2.0-6.9); NEUTROPHILS % (AUTO) 70.3 % (42.2-75.2); PLATELET COUNT 216 10^3/uL (140-440); RDW COEFFICIENT OF VARIATION 12.6 % (11.6-14.8); RED BLOOD COUNT 4.75 10^6/ul (4.70-6.10); WHITE BLOOD COUNT 11.86 K/ul (4.2-10.2)
[2021-07-13 05:05] LABS: ALANINE AMINOTRANSFERASE 16.7 U/L (0-50); ALBUMIN 3.8 g/dL (3.5-5.0); ALKALINE PHOSPHATASE 30.2 U/L (56-119); ASPARTATE AMINO TRANSFERASE 20.8 U/L (17-59); BILIRUBIN,TOTAL 0.39 mg/dL (0.2-1.3); BLOOD UREA NITROGEN 15.5 mg/dL (9-20); CALCIUM 9.33 mg/dL (8.4-10.2); CARBON DIOXIDE 32.3 mmol/L (22-30.0); CHLORIDE 101.3 mmol/L (98-107); CREATININE 0.94 mg/dL (0.60-1.10); GLUCOSE 153.6 mg/dL (74-106); POTASSIUM 3.99 mmol/L (3.5-5.1); SODIUM 138.8 mmol/L (134.5-145); TOTAL PROTEIN 6.45 g/dL (6.3-8.2)
[2021-07-13] MEDS ORDERED: LASIX IVP SCH ×2 (06:30)
[2021-07-13] MEDS: COREG PO SCH (09:22)
[2021-07-13] MEDS: THIAMINE IM SCH (09:22)
[2021-07-13] MEDS: GLUCOPHAGE PO SCH (09:22)
[2021-07-13] MEDS: LIBRIUM PO SCH (09:22)
[2021-07-13] MEDS: ZESTRIL PO SCH (09:22)
[2021-07-13] MEDS: ROCEPHIN 1 GM/50 ML D5W 1 GM/50 ML BAG IV SCH (09:22)
[2021-07-13] MEDS: LOVENOX SUBCUT SCH (09:23)
[2021-07-13] MEDS: MIRALAX PO SCH (10:19)
[2021-07-13] MEDS: SYMBICORT 160-4.5 MCG INHALER IH SCH (10:20)
[2021-07-13 10:27] VITALS: BP 94/61; TEMP 97.7
--- NOTE | 2021-07-13 11:39 | PCM.DC ---
Final Diagnosis: Acute Congestive heart failure Hypertension Borderline Diabetes Reason for Hospitalization: Respiratory distress secondary to CHF Prognosis at Discharge: Fair Condition at Discharge: Stable and Improved. Medications at Discharge: Ambulatory Orders Medication Instructions Recorded 1 [No Reported Medications] 07/10/21 Follow-ups: Follow up in the Clinic on the as scheduled Discharge Disposition: Home Hospital Course: Pt was admitted and treated for both CHF and pneumonia. He was seen by Dr. Bautista in consult. He has an Echo showing an EF of 25%. He was treated for his medial issues and improved greatly during his course. He will be given medication per Dr. Bautista. He will FU in the clinic the as scheduled. Plan: Medications per above and follow-up in clinic.
--- NOTE | 2021-07-14 10:53 | CONS ---
DATE OF SERVICE: 07/12/21 CONSULT FOLLOWUP SUBJECTIVE: The patient was seen and examined with the nurse practitioner. The patient is feeling a lot better. He says he is breathing deep, coughing much less. He was able to sleep last night. He has gotten out a lot of urine. PHYSICAL EXAMINATION: VITAL SIGNS: Pulse rate is a lot better. HEENT: Head normocephalic, atraumatic. Eyes: Extraocular muscles are intact. Pupils are equal, round and reactive to light and accommodation. Ears: No lesions. Nose appeared normal. Throat: No exudate or erythema. NECK: Supple. No JVD, no carotid bruit. No lymphadenopathy or thyromegaly. LUNGS: More air entry. Clear to auscultation. Percussion note normal. Chest symmetrical. HEART: S1, S2, no S3. No murmur. No cyanosis or clubbing. No ascites. Pulses: Dorsalis pedis and posterior tibial pulses +1 to +2 bilaterally. ABDOMEN: Soft. Nontender. Bowel sounds active. No CVA tenderness. No mass felt. EXTREMITIES: +1 pitting edema has subsided. Full range of motion of all extremities, equal. NEUROLOGIC: No focal deficit. Cranial nerves II through XII are grossly intact. No headache, no double vision or headache. SKIN: Not dry. Intact. Turgor - normal. LYMPHATIC: No palpable lymph nodes/no lymphedema. MUSCULOSKELETAL: Normal joints with no swelling. Muscle tone is normal. ASSESSMENT: The patient was explained all the findings especially dilated cardiomyopathy probably the result of alcoholism. RECOMMENDATIONS: 1. The case discussed with the attending Dr. Torres. 2. He is going to be discharged tomorrow. 3. Strongly advised to be followed by Heather De La Cruz the nurse practitioner. 4. The patient will be discharged on Coreg, Lisinopril and Lasix with potassium, Aspirin. 5. Strongly advised to quit drinking and smoking. Counseling done for both. Declined any help for either one of them. PFT showed mild to moderate COPD with FEV1 of 65% of normal predicted. TOTAL TIME SPENT: EXTENSIVE MTDD
--- NOTE | 2021-07-14 12:48 | CONS ---
DATE OF SERVICE: 07/13/21 CONSULT FOLLOWUP SUBJECTIVE: 61-year-old white male hospitalized with symptoms of CHF mixed in shortness of breath from his chronic lung disease with bronchitis that happened after he inhaled dust. The patient is feeling a little bit stronger, less short of breath. REVIEW OF SYSTEMS: CONSTITUTIONAL: No night sweats. No fatigue, malaise, lethargy. No fever or chills. HEENT: Eyes: No visual changes. No eye pain. No eye discharge. ENT: No runny nose. No epistaxis. No sinus pain. No sore throat. No odynophagia. No ear pain. No congestion. RESPIRATORY: No cough, no congestion. No hemoptysis. CARDIOVASCULAR: No angina symptoms. No CHF symptoms. No atypical chest pain for CAD. No palpitations. Short of breath with exertion but not like before. Practically no orthopnea or PND. GASTROINTESTINAL: Appetite seems to have improved. No abdominal pain. No nausea or vomiting. No diarrhea or constipation. No hematemesis. No hematochezia. GENITOURINARY: No urgency. No frequency. No dysuria. No hematuria. No obstructive symptoms. No discharge. No pain. No significant abnormal bleeding. MUSCULOSKELETAL: No musculoskeletal pain. No joint swelling. No arthritis. NEUROLOGICAL: No headache. No neck pain. No syncope. No seizures. No dizziness. PSYCHIATRIC: Not anxious. No depression. No suicidal thoughts. No homicidal thoughts. SKIN: No rash. No lesions. No wounds. ENDOCRINE: No unexplained weight loss. No weight gain. HEMATOLOGIC/LYMPHATIC: No anemia. No purpura. No petechiae. No prolonged or excessive bleeding. No palpable lymph nodes. PHYSICAL EXAMINATION: GENERAL: The patient is oriented to time, place and person. VITAL SIGNS: Temperature 97.6, pulse 80, respiratory rate 18, BP 101/64, pulse ox 94%. HEENT: Head normocephalic, atraumatic. Eyes: Extraocular muscles are intact. Pupils are equal, round and reactive to light and accommodation. Ears: No lesions. Nose appeared normal. Throat: No exudate or erythema. NECK: Supple. No JVD, no carotid bruit. No lymphadenopathy or thyromegaly. LUNGS: Decreased breath sounds but clear to auscultation. Percussion note normal. Chest symmetrical. HEART: S1, S2, no S3. No murmur. No cyanosis or clubbing. No ascites. Pulses: Dorsalis pedis and posterior tibial pulses +1 to +2 bilaterally. ABDOMEN: Soft. Nontender. Bowel sounds active. No CVA tenderness. No mass felt. EXTREMITIES: Trace edema. Full range of motion of all extremities, equal. NEUROLOGIC: No focal deficit. Cranial nerves II through XII are grossly intact. No headache, no double vision or headache. SKIN: Not dry. Intact. Turgor - normal. LYMPHATIC: No palpable lymph nodes/no lymphedema. MUSCULOSKELETAL: Normal joints with no swelling. Muscle tone is normal. Hemoglobin 13.4, hematocrit 41, WBC 11,000, normal differential. Creatinine 0.9, BUN 15, potassium 3.9. ASSESSMENT: 1. CHF. 2. DILATED CARDIOMYOPATHY WITH EJECTION FRACTION 25%. LIKELY ALCOHOLIC CARDIOMYOPATHY. 3. DIABETES MELLITUS, A1C MORE THAN 7. 4. CHRONIC LUNG DISEASE WITH HISTORY OF HEAVY SMOKING. 5. ALCOHOLISM. 6. NONCOMPLIANCE OF ALL ASPECTS OF MEDICAL CARE. RECOMMENDATIONS: 1. Discharge the patient home on Carvedilol 3.125 mg p.o. daily. 2. Lisinopril 2.5 p.o. daily. 3. Lasix 20 mg p.o. daily. 4. K-Tab 10 mEq p.o. daily. 5. Baby aspirin 81 mg p.o. daily. 6. Keflex 500 mg p.o. twice a day for 5 days. 7. Pro-Air HFA two puffs q.i.d. p.r.n. for shortness of breath. 8. The patient advised cardiac rehab, recommended, discussed. 9. Counseling for smoking and alcoholism done. He doesn't want any help for it to quit. 10. The patient is going to be followed in the clinic to be seen on June. The patient should be referred to marketing assistant manager for possibility of Life vest and also to rule out ischemic cardiomyopathy. 11. Stress Echo Sestamibi could be done as an outpatient in 7 to 10 days. The patient should have repeat echocardiogram in 6 months to evaluate LV function and ejection fraction. 12. The patient is a candidate for [place] but I don't think that he has means to pay for this. He indicated that he would likely need cheaper medications. The patient's condition is stable. Prognosis is guarded. TIME SPENT: Extensive. MTDD
--- NOTE | 2021-07-14 12:54 | CONS ---
BILLIN07/11/21 INITIAL CONSULTATION - EXTENSIVE 07/12/21 CONSULTATION FOLLOWUP EXTENSIVE 07/13/21 CONSULTATION FOLLOWUP EXTENSIVE MTDD
== END 2021-07-13 13:35 | disposition home or self-care (01) | DRG 293 ==
LOC: ED 12:05 → INTOOBSV 17:28 → MEDSURG A 17:28
PROVIDERS: ADMIT Emergency Medicine; ATTEND Emergency Medicine
DX: E11.9 Type 2 diabetes mellitus without complications; R00.2 Palpitations; I25.10 Atherosclerotic heart disease of native coronary artery without angina pectoris; R06.01 Orthopnea; I50.9 Heart failure, unspecified; R63.0 Anorexia; R60.0 Localized edema; I10 Essential (primary) hypertension; R06.02 Shortness of breath; R42 Dizziness and giddiness